=== PATIENT | female | born 1990 | race Caucasian/White ===

== ENCOUNTER 2018-11-09 07:17 | Inpatient (IN) | payer BC ==
[~2018-11-09] VITALS: Ht 167.6 cm; Wt 119.5 kg
[2018-11-12] VITALS (18 sets, daily range): BP systolic 102–142; BP diastolic 53–85; PULSE 56–79; TEMP 97.2–98.8
[2018-11-12] MEDS ORDERED: TRANDATE 100MG100 MG PO (10:23)
[2018-11-12] MEDS ORDERED: PRENATAL VITAMI1 TA3 PO (10:23)
[2018-11-12] MEDS ORDERED: PRILOSEC 20MG20 MG PO (10:23)
[2018-11-12 10:45] LABS: BASO % 0.3 % (0.0-2.0); EOS # 0.3 (0.0-0.7); GRAN # 7.1 (1.4-6.5); GRAN % 65.3 % (42.2-75.2); HEMATOCRIT 35.3 % (37.0-47.0); HEMOGLOBIN 11.5 g/dl (12.5-16.0); LYMPH # 2.6 (1.2-3.4); LYMPH % 24.2 % (20.0-51.0); MEAN CELL VOLUME 84 fl (80.0-100.0); MEAN CORPUSCULAR HEMOGLOBIN 27 pg (27.0-31.0); MEAN CORPUSCULAR HGB CONC 33 g/dl (33.0-37.0); MEAN PLATELET VOLUME 12.9 fl (7.4-10.4); MONO # 0.7 (0.1-0.6); MONO % 6.6 % (1.7-9.3); PLATELET COUNT 191 K/mm3 (130-400); RED BLOOD COUNT 4.21 M/mm3 (4.10-5.30); REDCELL DISTRIBUTION WIDTH-CV 14.6 % (11.5-14.5)
[2018-11-12 10:51] LABS: ALBUMIN 3.6 gm/dL (3.5-5.0); BILIRUBIN,TOTAL 0.5 mg/dL (0.0-1.0); CALCIUM 9.2 mg/dL (8.4-10.2); CREATININE, serum 0.75 (0.52-1.25); POTASSIUM 4.2 mmol/L (3.4-5.0); TOTAL PROTEIN 6.6 gm/dL (6.4-8.2)
[2018-11-12] MEDS ORDERED: PERCOCET 325 MG1 TA2 PO (11:48)
[2018-11-12] MEDS ORDERED: MOTRIN 800800 MG/TAB PO (11:48)
[2018-11-13 04:30] VITALS: BP 128/74; PULSE 68; TEMP 98.2
[2018-11-13 06:40] VITALS: BP 120/69; PULSE 80; TEMP 97.6
[2018-11-13 17:45] VITALS: BP 134/71; PULSE 85; TEMP 97.5
[2018-11-13 21:30] VITALS: BP 131/80; PULSE 88; TEMP 98.1
[2018-11-14 03:00] VITALS: BP 145/87; PULSE 87; TEMP 98.1
[2018-11-14 08:37] VITALS: BP 126/68; PULSE 78; TEMP 98.1
[2018-11-14 16:00] VITALS: BP 134/72; PULSE 76; TEMP 98.1
[2018-11-14 20:46] VITALS: BP 133/78; PULSE 92; TEMP 98
[2018-11-15 07:40] VITALS: BP 133/78; PULSE 78; TEMP 98.3
== END 2018-11-15 10:44 | disposition home or self-care (01) | DRG 788 ==
LOC: LDR 11-12 07:17 → OB 11-12 10:00
PROVIDERS: ADMIT Obstetrics & Gynecology
PROC: 10D00Z1 Extraction of Products of Conception, Low, Open Approach (ICD-10-PCS; principal; 2018-11-12)
DX: O36.63X0 Maternal care for excessive fetal growth, third trimester, not applicable or unspecified (principal); O13.4 Gestational [pregnancy-induced] hypertension without significant proteinuria, complicating childbirth; O99.62 Diseases of the digestive system complicating childbirth; O99.824 Streptococcus B carrier state complicating childbirth; Z3A.37 37 weeks gestation of pregnancy; Z37.0 Single live birth; K21.9 Gastro-esophageal reflux disease without esophagitis; O69.81X0 Labor and delivery complicated by cord around neck, without compression, not applicable or unspecified; O99.214 Obesity complicating childbirth; E66.9 Obesity, unspecified
CPT/HCPCS: J0690; J1885; J2370; J2405; J2590; J7120

== ENCOUNTER → 2020-04-21 | Outpatient (CLI) | payer SELFPAY ==
[~2020-04-21] MED LIST: MOTRIN 800800 MG/TAB PO; PERCOCET 325 MG1 TA2 PO; PRENATAL VITAMI1 TA3 PO; PRILOSEC 20MG20 MG PO; TRANDATE 100MG100 MG PO
== END | disposition still patient (30) ==
LOC: ZCOL.LAB 03:00
DX: Z20.822 Contact with and (suspected) exposure to COVID-19 (principal)

== ENCOUNTER 2020-04-25 09:20 | Inpatient (IN) | payer SELFPAY ==
[~2020-04-25] VITALS: Ht 167.6 cm; Wt 113.6 kg
[2020-04-25] VITALS (24 sets, daily range): BP systolic 91–142; BP diastolic 51–84; PULSE 59–83; TEMP 97.2–98.6
--- NOTE | 2020-04-25 09:05 | NUR ---
Patient arrives ambulatory with spouse for scheduled repeat cesearan section. Patient denies contractions, ROM or vaginal bleeding and reports normal movement. Plan of care for repeat reviewed, patient denies questions. Changes into gown, EFM explained and placed. VS obtained. IV started by Leonie Fuller RN and labs obtained and sent. LR infusing preop per order. Consents explained and signed. 0935- Report to Shannan Galvez RN who assumes care of patient.
[2020-04-25] MEDS ORDERED: MOTRIN 800800 MG/TAB PO (10:03)
[2020-04-25] MEDS ORDERED: PERCOCET 325 MG1 TA2 PO (10:04)
[2020-04-25 10:10] LABS: BASO # 0.1 (0.0-0.2); BASO % 0.5 % (0.0-2.0); EOS # 0.3 (0.0-0.7); EOS % 2.6 % (0-4.0); GRAN # 7.5 (1.4-6.5); GRAN % 67.4 % (42.2-75.2); HEMATOCRIT 39.7 % (37.0-47.0); LYMPH # 2.5 (1.2-3.4); LYMPH % 22.1 % (20.0-51.0); MEAN CELL VOLUME 82 fl (80.0-100.0); MEAN CORPUSCULAR HEMOGLOBIN 27 pg (27.0-31.0); MEAN CORPUSCULAR HGB CONC 33 g/dl (33.0-37.0); MEAN PLATELET VOLUME 13.4 fl (7.4-10.4); MONO # 0.8 (0.1-0.6); MONO % 6.9 % (1.7-9.3); PLATELET COUNT 195 K/mm3 (130-400); RED BLOOD COUNT 4.83 M/mm3 (4.10-5.30); REDCELL DISTRIBUTION WIDTH-CV 13.4 % (11.5-14.5)
--- NOTE | 2020-04-25 11:13 | NUR ---
1113-Repeat c/s of G2L1 at 39.1 week gestation. AROM with copious amount of clear fluid at 1113 followed by difficulty delivery . Vacuum applied x 4 with 3 pop offs noted. Delivering physician released vaccum pressure and called out for forceps. Forceps inserted into uterus and unable to lock or engage around vertex. Forceps removed from field. delivered by fundal pressure per physican and assist at 1118. Apgars 2/9/9. Nursery resuscitation provided. stabilized following interventions. IM methergine given by anesthesia per MD orders. Lochia WNL. EBL 400 ml in OR. 1345-Patient reports large gush on pad in room. VSS. Fundal massage by RN firm and down 1 fingerbreath from umbilicus. 1355-Patient reports further gush of fluid. Fundal massage frim. Large amount of lochia and palm ssize clot on pad. VSS. Updated MD, orders for pitocin and IM methergine given, see EMAR. 1435-MD updated with further vaginal bleeding noted dressing saturated, see MD notification. Further medication orders recieved and administered, see EMAR>
--- NOTE | 2020-04-25 16:00 | NUR ---
1500-Dr. Giles on unit. Evaluates dressing, VS, and fundus. Orders to continue to monitor vaginal bleeding every 15 min and update if needed. 1730-Dr. Giles updated on patients QBL for recovery period up to this point 622ml. Over the last hour the total was 28ml. Orders to resume regular reocvery and call with questions or concerns.
--- NOTE | 2020-04-25 18:00 | NUR ---
1800-Patient up to bathroom with assist x1. Steady gait. Pruitt disconinued, cheryl care provided. Updated on plan of care. Taken to nursery to see via wheelchair.
[2020-04-26 00:30] VITALS: BP 126/64; PULSE 72; TEMP 97.3
[2020-04-26 05:00] VITALS: BP 128/74; PULSE 88; TEMP 98.2
[2020-04-26 06:45] VITALS: BP 125/63; PULSE 77; TEMP 97.5
--- NOTE | 2020-04-26 09:07 | NUR ---
Initial visit; Parents thanked Ticket Counter for offering congratulations and God's blessings for the of their son. Ticket Counter thanked family for choosing [facility].
[2020-04-26 17:34] VITALS: BP 134/68; PULSE 75; TEMP 98
[2020-04-26 20:20] VITALS: BP 112/66; PULSE 78; TEMP 98.4
[2020-04-27 07:51] VITALS: BP 118/67; PULSE 76; TEMP 97.8
== END 2020-04-27 14:50 | disposition home or self-care (01) | DRG 788 ==
LOC: OB 09:20
PROVIDERS: ADMIT Obstetrics & Gynecology
PROC: 10D00Z1 Extraction of Products of Conception, Low, Open Approach (ICD-10-PCS; principal; 2020-04-25)
DX: O34.211 Maternal care for low transverse scar from previous cesarean delivery (principal); Z3A.39 39 weeks gestation of pregnancy; Z37.0 Single live birth; O99.824 Streptococcus B carrier state complicating childbirth; O99.214 Obesity complicating childbirth; E66.9 Obesity, unspecified
CPT/HCPCS: J0690; J1885; J2210; J2270; J2405; J2590; J7120